=== PATIENT | male | born 1980 | race Hispanic/Latino ===

== ENCOUNTER 2020-10-27 11:53 | Emergency (ER) | payer OTHER, SELFPAY ==
[2020-10-27] MEDS ORDERED: Acetaminophen 500 MG TAB ONE (13:49)
[2020-10-27] MEDS ORDERED: diphenhydrAMINE 50 MG/ML VIAL ONE (13:49)
[2020-10-27] MEDS ORDERED: Metoclopramide HCl 10 MG/2 ML VIAL ONE (13:49)
[2020-10-27] MEDS ORDERED: Ketorolac Tromethamine 30 MG/ML VIAL ONE (13:49)
== END 2020-10-27 15:46 | disposition home or self-care (01) ==
LOC: ERS 11:53
DX: R51.9 Headache, unspecified (principal)
CPT/HCPCS: 96365; 96375; J1200; J1885; J2765